=== PATIENT | female | born 1960 | race Caucasian/White ===

== ENCOUNTER 2017-05-21 08:39 | Outpatient (CLI) ==
[2015-06-23 13:49] VITALS: BMI 21.1
--- NOTE | 2017-05-21 14:06 | MRI ---
EXAM: MRI cervical spine without IV contrast. DATE: 21 May 2017. HISTORY: Cervical radiculopathy. Neck pain. TECHNIQUE: Sagittal and axial T1W and T2W sequences of the cervical spine along with sagittal IR and coronal T2W sequences were obtained using 1.5 Gabriela magnet. No IV contrast. COMPARISON: C-spine series 09/09/2015. MRI C-spine 02 July 2011. FINDINGS: Minor rightward curvature of the mid cervical spine is redemonstrated. A 1.4 mm anterior subluxation of C6 relative to C5 is noted. No other subluxation, acute fracture, osseous malignancy, or jumped facet is evident. Cervical vertebra are normal in height. Bone marrow signal is normal. Minor disc space narrowing is seen at C5-6. Tiny anterior osteophytes noted at C6-7. Cervical spin al cord reveals no syrinx, cord edema, myelomalacia, or neoplasm. T3-4 posterior disc/osteophyte com plex flattens the cord anteriorly, and there is subtle IR hyperintensity within the cord at this leve l.. Artifacts are seen in the spinal canal at this level. No brainstem abnormality is detected. There is no Chiari 1 malformation. Mastoid air cells are norm al. No thyroid, submandibular, or parotid gland neoplasm is evident. Trachea, larynx, and epiglotti s are normal. No distinct neck mass, cervical lymphadenopathy, apical lung mass, pneumonia, or pleur al effusion is identified. Segmental analysis: C2-3: Normal. C3-4: Minimal midline to right paracentral disc bulge (1 mm AP) does not cause cord compression. Ca nal is 12.5 mm AP. Each foramen is patent. C4-5: Minimal posterior disc bulge (1 mm AP) does not contact the cord. Canal is 12.1 mm AP. Each foramen is patent. C5-6: Minimal anterior subluxation of C6 and small pseudodisc bulge do not cause cord compression. Canal is 10.8 mm AP. Mild right and moderate left foraminal stenoses are due to uncinate hypertrophy , the subluxation, and minor left facet disease C6-7: Normal, except for mild right and moderate left foraminal stenoses due to uncinate hypertrophy and minor facet disease. C7-T1: Normal. T1-2: Normal. T2-3: Normal. T3-4: Midline disc protrusion indents the anterior aspect of the cord. Cord appears mildly narrow i n this location. No definitive syrinx. No central canal stenosis or foraminal stenosis. IMPRESSIONS: 1. C-spine minor spondylosis, facet arthropathy, and DDD - - similar to June 2011. 2. No cervical cord compression or central canal stenosis. 3. C5-6 and C6-7 foraminal stenoses (mild/moderate). 4. T3-4 disc protrusion flattening the anterior spinal cord is similar to June 2011. Cannot exc lude minor myelomalacia in the spinal cord at this level.
--- NOTE | 2017-05-21 14:18 | MRI ---
EXAM: MRI lumbar spine without IV contrast. DATE: 21 May 2017. HISTORY: Lumbar radiculopathy. Low back pain. Bilateral leg pain down to the knees. TECHNIQUE: Sagittal and axial T1W and T2W sequences of the lumbar spine along with sagittal IR and c oronal T2W sequences were obtained using 1.2 Gabriela magnet. No IV contrast. COMPARISON: MRI L-spine [address] L-spine 24 April 2013. FINDINGS: There are five [id number]-lyi-svpfuvm lumbar vertebra. A 7 degrees rightward curvature lower thor acic and upper lumbar spine is noted. No acute lumbar fracture, subluxation, osseous malignancy, or pars interarticularis defect is identified. Lumbar vertebrae normal in height. Bone marrow signal i s normal. T2W/T1W bright, 6.6 mm focus in the L1 body and a similar 6.2 mm focus in the L3 body are likely benign hemangiomas. Disc desiccation and minor disc space narrowing are observed at L3-4 and L5-S1. No sacral fracture or stress reaction is apparent. SI joints are unremarkable. Conus medull whitney terminates at L1-2. Visible spinal cord is normal. No retroperitoneal lymphadenopathy, paraspinal mass, or aortic aneurysm is detected. Paraspinal musc ulature is symmetric bilaterally. Visible portions of the liver, spleen, adrenal glands, and kidneys reveal no malignancy. Minor pelvicaliectasis is noted bilaterally, without wayne hydronephrosis. R ight lobe liver measures greater than 16.7 cm in length. Segmental analysis: T12-L1: Normal. L1-2: Normal. L2-3: Normal. L3-4: Normal. L4-5: Minimal posterior to left foraminal disc bulge causes minimal left inferior foraminal encroach ment. No central canal stenosis. L5-S1: Minimal posterior disc bulge does not cause central stenosis or foraminal stenosis. IMPRESSIONS: 1. T-L-spine minor rightward curvature and minor lumbar DDD. 2. No lumbar spine central canal stenosis. 3. Benign hemangiomas at L1 and L3 bodies. 4. Minimal left foraminal narrowing at L4-5. No definitive nerve compression. 5. Reidel's lobe liver variant vs mild hepatomegaly.
== END 2017-05-21 08:40 | disposition home or self-care (01) ==
LOC: RAD 08:39
PROVIDERS: ATTEND Clinical Nurse Specialist Adult Health
DX: M54.12 Radiculopathy, cervical region (principal); M54.17 Radiculopathy, lumbosacral region

== ENCOUNTER 2018-07-15 06:28 | Outpatient (CLI) | payer OTHER ==
[2015-06-23 13:49] VITALS: BMI 21.1
--- NOTE | 2018-07-15 10:34 | STRESSECHO ---
Date of Test: 07/15/18 Ordering Physician: DR. HOLDEN MONTAÑO Occupation: DISABLED Reason for Exam: CHEST PAIN/ TIGHTNESS Smoking History: QUIT 3 YRS AGO Height : 67" Weight: 153 LBS Current Medications: NEURONTIN, ZANAFLEX, PRILOSEC Resting EKG: SINUS RHYTHM/ NO ACUTE CHANGES Target Heart Rate: 128/163 S-T SEGMENT STAGE MPH/GRADE HEART RATE BPM BLOOD PRESSURE MMHG RHYTHM +/- ELEVATION DEPRESSION SYMPTOMS AT REST 68 BPM 122/82 [facility] SR X NONE 1 1.7/10% 110 BPM 134/64 [facility] SR X NONE 2 2.5/12% 127 BPM 146/62 MM[facility] SR X NONE 3 3.4/14% 4 4.2/16% 5 5.0/18% Immediately After 138 BPM SR X SHORT OF BREATH Minutes Post Exercise 5:00 88 BPM 124/74 MM[facility] SR X NONE Minutes Post Exercise DURATION OF EXERCISE: 6:40 MAXIMUM HEART RATE REACHED: 138 BPM REASON FOR TERMINATION: SHORT OF BREATH 99% OXYGEN SATURATION WITH EXERCISE ON ROOM AIR METS 9.0 INTERPRETATION: 1. NO EVIDENCE OF ISCHEMIA BY ST-T WAVE 2. NO CHEST PAIN OR CHEST DISCOMFORT 3. BLOOD PRESSURE RESPONSE: NORMAL AT REST AND WITH EXERCISE 4. NO ARRHYTHMIAS NORMAL LEFT VENTRICULAR CONTRACTILITY--RESTING AND POST EXERCISE MTDD
--- NOTE | 2018-07-15 10:36 | ECHOSTRESS ---
Date of Exam: 07/15/18 Ordering Physician: DR. HOLDEN MONTAÑO Reason for Echo: CHEST PAIN, STRESS TEST--NO ISCHEMIA M-Mode Normal Adult Results LV Dimensions Normal Adult Results AoV Opening excursions >1.6 LVEDD-base- 3.5-5.8 Ao root dimensions 2.0-3.7 LVESD-base- 3.1-4.6 L. Atrium dimensions 1.9-3.8 Post. Wall thickness 0.8-1.1 IV septum (thickness) 0.7-1.2 Post. Wall excursion 0.72-1.3 Septal motion Systolic motion R. Ventricular cavity 1.5-2.0 LVEF 60% Paradoxical septal wall motion 2-D: NORMAL LEFT VENTRICULAR CONTRACTILITY--RESTING AND POST EXERCISE M-MODE: MV: AV: TV: PV: CHAMBER SIZE: WALL MOTION: NORMAL LEFT VENTRICULAR CONTRACTILITY--RESTING AND POST EXERCISE PERICARDIUM: INTERPRETATION: 1. NORMAL LEFT VENTRICULAR CONTRACTILITY--RESTING AND POST EXERCISE MTDD
== END 2018-07-15 06:29 | disposition home or self-care (01) ==
LOC: CAR 06:28
PROVIDERS: ATTEND Family Medicine
DX: R07.9 Chest pain, unspecified (principal)